=== PATIENT | male | born 1995 | race African-American/Black ===

== ENCOUNTER 2024-03-07 02:33 | Emergency (ER) | payer SELFPAY ==
[2024-03-07 02:43] VITALS: BP 144/95
--- NOTE | 2024-03-07 03:58 | ED.GENMED ---
Addendum entered and electronically signed by Kaylee Solis MD 03/13/24 01:49:
LATE ENTRY 6..24 149AM DIAGNOSIS : L FOOT PAIN
Original Note:
History of Present Illness
<RENATO Garcia - Last Filed: 03/07/24 05:16>
General
Chief Complaint: Musculo-Skeletal Complaint
Source: patient and spouse
Exam Limitations: none
Time Seen by Provider: 03/07/24 03:31
Travel History
Have you had any contact with someone who has COVID-19?: No
Do you have any symptoms of coronavirus? Fever > 100 degrees, chills, cough, shortness of breath, sore throat, loss of taste or smell, muscle aches, or headache?: No
History of Present Illness
History of Present Illness:
28 year old male with no significant past medical hx who presents with sudden onset of worsening L foot pain that began Saturday. Pain came on while pt was lying down. Pain is located to the bottom of the L heel, lateral foot, towards the pinky
toe. Currently pain is 10/10 and feels like a sharp stabbing pain and radiates up the lateral lower leg up to the knee. He has numbness to his L toes. Initially he was able to bear weight on it. He took Aspirin 81 mg 1 tab initially with no relief
of pain. He took Tylenol just prior to arrival. Denies trauma, injury, previous surgeries to the foot. 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 Denies symptoms to the R foot. Denies chest pain, SOB, fevers/chills, numbness/tingling to
other extremities, calf pain.
Review of Systems
<RENATO Garcia - Last Filed: 03/07/24 05:16>
Review of Systems
Allergies reviewed?: Yes
All Other Systems: ROS reviewed and negative except as documented in HPI and ROS
Constitutional: Reports no symptoms
EENT: Reports no symptoms
Respiratory: Reports no symptoms
Cardiac: Reports no symptoms
ABD/GI: Reports no symptoms
: Reports no symptoms
Musculoskeletal: Reports other (pain to L foot)
Skin: Reports no symptoms
Neurological: Reports numbness (to toes of L foot)
Endocrine: Reports no symptoms
Hematologic/Lymphatic: Reports no symptoms
Psychiatric: Reports no symptoms
Phy Exam
<RENATO Garcia - Last Filed: 03/07/24 05:16>
General Physical Exam
General Presentation: well appearing and no apparent distress
General age: appears stated age
General Skin: warm and dry
General Habitus: normal
General Mental: alert
General Hydration: appears well hydrated
Cardiovascular Exam
Cardiovascular Exam: regular rate/rhythm, no edema, no gallop, no murmur and normal peripheral pulses
Pulmonary Exam
Pulmonary Exam: lungs clear, no respiratory distress, no rales, no crackles, no rhonchi, no wheezing and no cough
Neurological Exam
Neurological Exam: alert and oriented x3
Musculoskeletal Exam
Musculoskeletal Exam: other (tenderness to palpation of L heel, lateral L foot, L pinky toe. Motor and sensation intact. DP pulses present. No swelling, erythema. No deformities. )
Skin Exam
Skin Exam: normal color and warm/dry
Psychiatric Exam
Psychiatric Exam: normal mood/affect
Course
<RENATO Garcia - Last Filed: 03/07/24 05:16>
Orders/Labs/Results
Orders:
Orders
03/07/24 04:11
CR Foot - Left Min 3 Views Urgent
Comment:
Reason For Exam: foot pain
03/07/24 04:52
Ibuprofen [Motrin] 600 mg PO NOW STA
Vital Signs
Initial and Last Documented VS:
Initial Vital Signs
Temp Pulse Resp BP Pulse Ox
98.3 F 78 20 144/95 97
03/07/24 02:43 03/07/24 02:43 03/07/24 02:43 03/07/24 02:43 03/07/24 02:43
Last Documented Vital Signs
Temp Pulse Resp BP Pulse Ox
98.3 F 78 20 144/95 97
03/07/24 02:43 03/07/24 02:43 03/07/24 02:43 03/07/24 02:43 03/07/24 02:43
<Kaylee Solis MD - Last Filed: 03/07/24 05:15>
Orders/Labs/Results
Orders:
Orders
03/07/24 04:11
CR Foot - Left Min 3 Views Urgent
Comment:
Reason For Exam: foot pain
03/07/24 04:52
Ibuprofen [Motrin] 600 mg PO NOW STA
Vital Signs
Initial and Last Documented VS:
Initial Vital Signs
Temp Pulse Resp BP Pulse Ox
98.3 F 78 20 144/95 97
03/07/24 02:43 03/07/24 02:43 03/07/24 02:43 03/07/24 02:43 03/07/24 02:43
Last Documented Vital Signs
Temp Pulse Resp BP Pulse Ox
98.3 F 78 20 144/95 97
03/07/24 02:43 03/07/24 02:43 03/07/24 02:43 03/07/24 02:43 03/07/24 02:43
<RENATO Garcia - Last Filed: 03/07/24 05:16>
MDM/Problems Addressed
Differential Diagnosis Includes:
peroneal tendonitis, plantar fasciitis, fracture, ligament tear
<RENATO Garcia - Last Filed: 03/07/24 05:16>
*Critical Care Note
Total Time (30-74mins, 75-104mins- exclusive of procedures): Not Applicable
ED Attending Note
<RENATO Garcia - Last Filed: 03/07/24 05:16>
-
Portions of this chart may have been created with voice recognition software.� Occasional wrong word or��sound alike� substitutions may have occurred due to the inherent limitations of voice recognition software.
<Kaylee Solis MD - Last Filed: 03/07/24 05:15>
ED Attending Note
Patient seen and examined by attending physician: Yes
I performed the substantive portion of visit, reviewed & personally made and approve the management plan that is documented in note by myself or SEBASTIÁN.: Yes
ED Attending Note:
28-year-old male with complaints of pain of the left lateral aspect of the heel radiating to the lateral aspect of the foot distally to the level of the pinky toe. This started late Saturday evening and continues, especially worse with standing or
walking. He denies associated trauma, drainage, redness, warmth, fever, chills, joint pain. He says the area feels a little bit painful in the distal posterior leg area but this is minor compared to the actual foot. Patient is on his feet for
many hours a day 6 days a week. On exam, no swelling redness or warmth noted. No lesions or rash, drainage fluctuance or crepitus of the foot ankle or calf area. Achilles intact without tenderness to palpation. No calf tenderness or swelling.
2+ DP PT pulses. Sensation intact to light touch. Full range of motion of entire lower extremity without difficulty. He notes discomfort at the lateral aspect of the left heel, left fifth metatarsal and left pinky toe with palpation. Clinically
I highly doubt septic arthritis, gout, vascular event. May be consistent with plantar fasciitis or overuse. X-ray not consistent with fracture. Patient aware x-ray may not fully rule out stress fracture. Recommendation is walking boot,
nonsteroidals, Ortho follow-up. present and in agreement with plan as well.
Discharge Plan
Departure
Date of Disposition: 03/07/24
Time of Disposition: 05:13
Patient with high blood pressure during this ER visit?: Yes
Condition: Good
Instructions: Foot Sprain ED, BLOOD PRESSURE
Prescriptions:
No Action
No Current Medications
0
Referrals:
Edison Wharton MD [Active] - As needed
Activity Restrictions/Additional Instructions:
IF YOU DEVELOP INCREASING/NEW/PERSISTENT PAIN, REDNESS, WARMTH, SWELLING, FEVER, DRAINAGE, OR OTHER WORRISOME SIGNS, GO TO THE ER IMMEDIATELY!
Interventions
Interventions:
*Risk Screen - Suicide Last Done: 03/07/24 02:43
*General Assessment Last Done: 03/07/24 02:43
*Neglect/Abuse Screening Last Done: 03/07/24 02:43
ED- Fall Risk Assessment Last Done: 03/07/24 02:43
*ED COVID-19 Vaccine History Last Done: 03/07/24 02:43
ED-Musculoskeletal Assessment Last Done: 03/07/24 03:28
Discharge Date and Time
Print Language: KYRGYZ
[2024-03-07] MEDS: MOTRIN 600 MG PO (05:05)
== END 2024-03-07 05:40 | disposition home or self-care (01) ==
LOC: EMR 02:33
PROVIDERS: EMERGENCY PHYSICIAN Emergency Medicine
DX: S93.602A Unspecified sprain of left foot, initial encounter (principal); X58.XXXA Exposure to other specified factors, initial encounter; R03.0 Elevated blood-pressure reading, without diagnosis of hypertension
CPT/HCPCS: 99283; 73630

== ENCOUNTER 2024-03-11 01:23 | Inpatient (IN) | payer OTHER, SELFPAY ==
[2024-03-10 23:38] VITALS: BP 163/103
[2024-03-10 23:57] LABS: Glucose - Point of Care 102 mg/dl (70-99)
[2024-03-11] VITALS (65 sets, daily range): BP systolic 114–165; BP diastolic 69–103; BMI 35.5; BMI 35.1
[2024-03-11 00:03] LABS: Hematocrit 44.6 % (39.0-52.0); Hemoglobin 15.1 g/dL (13.0-18.0); Mean Corp Hgb Conc. 33.9 g/dL (33.0-37.0); Mean Corpuscular Volume 85.6 fL (80.0-94.0); Mean Platelet Volume 9.7 fL (7.4-10.4); Platelet Count 356 10^3/uL (130-400); Red Blood Cell Count 5.21 10^6/uL (4.70-6.10); Red Cell Dist. Width 13.3 % (11.5-14.5); White Blood Cell Count 13.5 10^3/uL (4.8-10.8)
[2024-03-11 00:13] LABS: INR 1.03; PT 13.3 Sec (11.4-14.6)
[2024-03-11] MEDS: TNKASE 5 MG IV (00:23)
[2024-03-11 00:24] LABS: ALT (SGPT) 59 U/L (0-50); AST (SGOT) 47 U/L (17-59); Albumin 5.1 g/dl (3.5-5.0); Alkaline Phosphatase 74 U/L (38-126); Blood Urea Nitrogen 13 mg/dl (9-20); Calcium 10.5 mg/dl (8.4-10.2); Carbon Dioxide 25 mmol/L (22-30); Chloride 105 mmol/L (98-107); Estimated Creatinine Clearance > 125 ml/min; Glucose 103 mg/dl (70-99); Potassium 4.3 mmol/L (3.5-5.1); Sodium 140 mmol/L (135-145); Total Bilirubin 0.6 mg/dl (0.2-1.3); Total Protein 8.1 g/dl (6.3-8.2); eGFR > 60.00
[2024-03-11 00:27] LABS: Alcohol None Detected
--- NOTE | 2024-03-11 00:28 | EDRN ---
Patient currently back in CT. Per the verbal orders of Dr. Zavala patient was to go directly back to CT after giving the TNK.
[2024-03-11 00:36] LABS: Troponin I < 0.012 ng/ml
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
--- NOTE | 2024-03-11 01:04 | EDRN ---
Patient being transferred to the ICU.
[2024-03-11] MEDS: TYLENOL 650 MG PO (02:34)
[2024-03-11] MEDS: NSS 1000 IV (02:35)
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
[2024-03-11 03:13] LABS: Urine Albumin Negative (Neg - Trace); Urine Bilirubin Negative (Negative); Urine Character Clear (Clear); Urine Color Yellow; Urine Glucose Negative (Negative); Urine Ketone Negative (Negative); Urine Leukocyte Negative (Negative); Urine Nitrite Negative (Negative); Urine Occult Blood Negative (Negative); Urine Specific Gravity 1.015 (<1.030); Urine Urobilinogen Negative (Neg - 1+)
--- NOTE | 2024-03-11 03:34 | PTCARENOTE ---
Received patient AAOx4, following commands, complaining of headache in left christianity. Patient reports 'it's not painful, just pressure'. PRN tylenol given. Drowsy, PERRLA 3, moves all extremities. Handoff NIH 3 due to left arm drift and bilateral
lower extremity drift. NIH 2 hours post TNK 0. Limited movement in left leg due to pain from plantar fasciitis. Normal sinus/sinus jasen, 58-70s. SCDs on, BP 130s-140s/80s-90s. Temp 100 orally. Palpable radial and pedal pulses bilaterally. 96% on
room air, lung sounds clear. Last BM yesterday, 03/10/24. Bathroom to void, yellow urine. UA/drug abuse screen sent. Skin intact, some scabs on legs. Right antecubital #18 WNL, patent. NSS running at 80 mls/hr per order. Family at bedside, updated.
Neuro checks ongoing, call duval within reach.
[2024-03-11 03:52] LABS: Amphetamines Negative (Negative); Barbiturates Negative (Negative); Benzodiazepines Negative (Negative); Buprenorphine Negative (Negative); Cocaine Negative (Negative); Marijuana Negative (Negative); Methadone Negative (Negative); Methamphetamines Negative (Negative); Opiates Negative (Negative); Phencyclidine Negative (Negative); Tricyclic Antidepressants Negative (Negative)
[2024-03-11 05:03] LABS: Hematocrit 41.1 % (39.0-52.0); Hemoglobin 13.9 g/dL (13.0-18.0); Mean Corp Hgb Conc. 33.8 g/dL (33.0-37.0); Mean Corpuscular Hgb 29.1 pg (27.0-31.0); Mean Platelet Volume 9.8 fL (7.4-10.4); Platelet Count 322 10^3/uL (130-400); Red Blood Cell Count 4.78 10^6/uL (4.70-6.10); Red Cell Dist. Width 13.2 % (11.5-14.5); White Blood Cell Count 9.9 10^3/uL (4.8-10.8)
[2024-03-11 05:14] LABS: INR 1.06; PT 13.6 Sec (11.4-14.6)
[2024-03-11 05:15] LABS: APTT 34.8 Sec (23.4-35.0)
[2024-03-11 05:25] LABS: ALT (SGPT) 51 U/L (0-50); AST (SGOT) 38 U/L (17-59); Albumin 4.3 g/dl (3.5-5.0); Alkaline Phosphatase 75 U/L (38-126); Blood Urea Nitrogen 11 mg/dl (9-20); Calcium 9.6 mg/dl (8.4-10.2); Carbon Dioxide 21 mmol/L (22-30); Chloride 107 mmol/L (98-107); Estimated Creatinine Clearance > 125 ml/min; Glucose 106 mg/dl (70-99); HDL Cholesterol 46 mg/dl; LDL Cholesterol, Calculated 145 mg/dl; Magnesium 1.8 mg/dl (1.6-2.3); Phosphorus 4.9 mg/dl (2.5-4.5); Potassium 4.1 mmol/L (3.5-5.1); Sodium 139 mmol/L (135-145); Total Bilirubin 0.5 mg/dl (0.2-1.3); Total Cholesterol 213 mg/dl (50-199); Total Protein 6.8 g/dl (6.3-8.2); Triglyceride 114 mg/dl (10-149); Very Low Density Lipoprotein 22 mg/dl (0-30); eGFR > 60.00
[2024-03-11 05:33] LABS: Troponin I < 0.012 ng/ml
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
--- NOTE | 2024-03-11 08:46 | PTCARENOTE ---
Dr Handley in to evaluate pt and speak w/ pt's present in room. New orders received. Per Dr Handley, pt can have MRI as early as 1600 today. MRI dept notified.
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
[2024-03-11] MEDS: COMPAZINE 5 MG PO (09:05)
[2024-03-11] MEDS: MAXALT MLT (ORALLY DISINTEGRATING) 10 MG PO ×2 (09:05→10:56)
[2024-03-11 09:09] LABS: Glycohemoglobin (HgbA1c) 6.3 % (4.0-5.6)
--- NOTE | 2024-03-11 10:00 | PTOTSP ---
Speech Language Pathology
Pt seen for speech/language evaluations. Initially, no dysarthria noted with adequate diadochokinetic (DDK) rates. By end of evaluation, pt with some dysarthria. However, suspect this was more fatigue and decreased movement of mouth than a true
dysarthria. Language evaluated via the Quick Aphasia Batter (QAB), form 1. Pt scored WNL on overall score as well as on all subtests.
Pt also seen for clinical bedside swallow evaluation. P.O. trials of puree, regular solids, and thin liquids provided. Adequate mastication, bolus formation, and A-P transit noted with no oral residue. No overt signs of aspiration. He stated
that applesauce felt like it went 'down slower' but did not stick in throat.
Recommend:
(1) Regular solids/thin liquids
(2) General aspiration precautions
(3) Meds as tolerated
(4) SUGAR HOUSE SUPERVISOR to continue to follow to ensure diet tolerance, assess for dysarthria, and complete therapeutic reassessment of cognitive abilities
--- NOTE | 2024-03-11 12:00 | PTCARENOTE ---
Pt continues to rest quietly in bed. Reports 'maybe a little' improvement in Lt sided facial numbness/pressure at latter-day' since previously administered Maxalt- rates discomfort 11/16. Otherwise neuro unchanged. Pt refused to get OOB to sit in chair
'I'm too tired'. Safe environment maintained. Call mukund w/in pt reach.
--- NOTE | 2024-03-11 14:41 | W.PN.HOSP.TC ---
Today's Communication/Plan
-
pt/ot/st
diet
MRI this afternoon
ECHO
Statin
antiplatelet regimen once cleared by neuro
Assessment / Plan
Assessment / Plan
Physical Exam
General: Other (28y M in no acute distress.)
HEENT: Moist mucous membranes and PERRLA
Respiratory: Clear; No Wheezes, Rales or Rhonchi
Cardiac: S1/S2 and Regular Rhythm; No Murmur
GI: Soft, Non Tender, Non Distended and Normal Bowel Sounds
Musculoskeletal: No Clubbing, No Cyanosis and No Edema
Neuro: AO x 3 and Other (Decreased sensation in the L hand, L foot and L face. Motor exam limited by apparent decreased effort - no focal or symmetric deficits.)
Psych: No Anxious or Depressed
A/P: Patient is a 28y M with PMH significant for vascular reconstruction of the LUE who presents to ED complainnig of L sided numbness that started this evening.
Left Sided Numbness / Headache
- Admit for further evaluation / treatment.
- ? CVA / TIA versus complex migraine versus other.
- CT / CTA unremarkable.
- Received TNKase in the ED - continue protocol.
- MRI at appx 4 pm
- OK for diet; Chol Lowering diet
- Neuro / Bee Farmer evaluations.
- Check Echo
- LDL 145 - start statin
- hgba1c - 6.3
- Note family history of undefined hypercoagulable state.
- Follow for changes in exam.
- PT / OT evaluations.
- Educated on diet and exercise
DVT Prophylaxis: SCDs
Code Status: Full
Anticipated Discharge: 24 - 48 hours
Subjective/Interval History
-
Date of Service: March 11, 2024
Improvement in left-sided weakness, still complains of numbness in the left face
Objective Data
-
Labs:
Laboratory Results
03/11/24
04:43
WBC 9.9
Hgb 13.9
Hct 41.1
Plt Count 322
PT 13.6
INR 1.06
APTT 34.8
Sodium 139
Potassium 4.1
Chloride 107
Carbon Dioxide 21 L
BUN 11
Creatinine 0.8
Glucose 106 H
Calcium 9.6
Total Bilirubin 0.5
AST 38
ALT 51 H
Alkaline Phosphatase 75
Vital Signs:
Vital Signs
Temp Pulse Resp BP Pulse Ox
98.2 F 78 19 124/80 96
03/11/24 11:08 03/11/24 14:15 03/11/24 14:15 03/11/24 14:00 03/11/24 14:15
I&O
03/10/24 03/11/24 03/12/24
06:59 06:59 06:59
Intake Total 400 / 480 560 / 560
Output Total 500 / 500
Balance 400 / 480 60 / 60
Review of Systems
-
History Source: Patient
All other systems: Not reviewed unless documented
Data Reviewed
-
Diagnostic Radiology: Image personally visualized and interpreted and Report Reviewed by me
CT Scan: Image personally visualized and interpreted and Report Reviewed by me
Labs: Labs Reviewed by me
--- NOTE | 2024-03-11 16:09 | CM ---
CM met with pt and mother/Tracey bedside
Pt slept through assessment
Pt resides with his spouse in a 2SH with 2 CHRISTOPHER, full flight to B/B
Pt is independent and no DMEs
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
Call with spouse to introduce self
Pt does not have a PCP
He recently lost his Medicaid insurance- unknown to spouse reason why
[facility]
Will continue to follow for dc planning
PT/OT pending
Discharge Disposition- home, likely no needs
--- NOTE | 2024-03-11 16:50 | PTCARENOTE ---
Pt to MRI at 1600 via WC. No changes noted. No new complaints. Returned to room and requested to return to bed 'I just feel wiped out and don't really want to sit up' Family in room visiting
[2024-03-11] MEDS: LIPITOR 40 MG PO (18:20)
--- NOTE | 2024-03-11 19:58 | PTCARENOTE ---
Received patient AAOx4, following commands, reporting acceptable level of 'pressure' from headache of 2. at bedside. NIH 0. Normal sinus 80s, BP stable 120s/70s. Palpable radial and pedal pulses bilaterally. SCDs on. 96% on room air. Lung
sounds diminished at the bases. Bathroom to void. Skin intact. Right antecubital #18 IV WNL, patent. Call duval within reach.
[2024-03-12] VITALS (10 sets, daily range): BP systolic 111–138; BP diastolic 56–85; PULSE 67; BMI 35.1
--- NOTE | 2024-03-12 | PTCARENOTE ---
Patient assessment unchanged from previous, call duval within reach.
[2024-03-12] MEDS: MAALOX 30 ML PO (01:41)
[2024-03-12] MEDS: TUMS EX (EXTRA STRENGTH) CHEWABLE 2 TABLET PO (01:41)
--- NOTE | 2024-03-12 04:00 | PTCARENOTE ---
Patient assessment unchanged from previous, received tums for heart burn. at bedside, patient sleeping comfortably.
[2024-03-12 05:04] LABS: Hemoglobin 14.2 g/dL (13.0-18.0); Mean Corpuscular Hgb 28.9 pg (27.0-31.0); Mean Corpuscular Volume 87.4 fL (80.0-94.0); Mean Platelet Volume 9.8 fL (7.4-10.4); Platelet Count 299 10^3/uL (130-400); Red Blood Cell Count 4.92 10^6/uL (4.70-6.10); Red Cell Dist. Width 13.2 % (11.5-14.5); White Blood Cell Count 9.9 10^3/uL (4.8-10.8)
[2024-03-12 05:35] LABS: ALT (SGPT) 48 U/L (0-50); AST (SGOT) 33 U/L (17-59); Albumin 4.1 g/dl (3.5-5.0); Alkaline Phosphatase 65 U/L (38-126); Blood Urea Nitrogen 14 mg/dl (9-20); Calcium 9.9 mg/dl (8.4-10.2); Carbon Dioxide 21 mmol/L (22-30); Chloride 108 mmol/L (98-107); Estimated Creatinine Clearance > 125 ml/min; Glucose 109 mg/dl (70-99); Phosphorus 5.4 mg/dl (2.5-4.5); Potassium 4.5 mmol/L (3.5-5.1); Sodium 139 mmol/L (135-145); Total Bilirubin 0.6 mg/dl (0.2-1.3); Total Protein 6.5 g/dl (6.3-8.2); eGFR > 60.00
[2024-03-12 06:04] LABS: TSH Reflex To Free T4 0.44 uIU/ml (0.47-4.68)
[2024-03-12 06:33] LABS: Free T4 0.84 ng/dl (0.78-2.19)
--- NOTE | 2024-03-12 07:52 | W.PN.NEURO.1 ---
Today's Communication / Plan
-
-No indication for antiplatelet
-Statin versus diet/exercise and cutting down alcohol and cigarettes both reasonable options
-No longer needs ICU
-No barriers to discharge from my POV, no further neurologic workup or monitoring needed
Will sign off call with questions and concerns
Neuro Assessment/Plan
Assessment
28 year old man with no PMH presenting with head pressure/discomfort on left adventism, mild photophobia, left facial numbness and left arm and leg mild weakness, received TNK with no complications.
No history of migraines
Has had intermittent chest pains
MRI no acute or chronic stroke, no findings suggestive of MS. Cisterna magna is benign anatomic variant.
Suspect this was migraine or stress/functional neurologic disorder. Not concerned this was TIA or seizure.
Much improved compared to admission and day after admission.
Subjective/Objective
Subjective Data
Date of Service: March 12, 2024
No acute events, started to feel better about 9 PM yesterday, no head pressure or discomfort, eating okay, still with left foot pain
Objective Data
Vital Signs
Temp Pulse Resp BP Pulse Ox
98.1 F 55 15 111/58 96
03/12/24 07:45 03/12/24 06:30 03/12/24 06:30 03/12/24 06:00 03/11/24 19:56
Lab Results
03/12/24 04:49
03/12/24 04:49
PT 13.6 Sec (11.4-14.6) 03/11/24 04:43
INR 1.06 03/11/24 04:43
APTT 34.8 Sec (23.4-35.0) 03/11/24 04:43
Sodium 139 mmol/L (135-145) 03/12/24 04:49
Potassium 4.5 mmol/L (3.5-5.1) 06/06/24 04:49
BUN 14 mg/dl (9-20) 03/12/24 04:49
Glucose 109 mg/dl (70-99) H 03/12/24 04:49
Calcium 9.9 mg/dl (8.4-10.2) 03/12/24 04:49
Phosphorus 5.4 mg/dl (2.5-4.5) H 03/12/24 04:49
LDL Cholesterol, Calc 145 mg/dl 03/11/24 04:43
Ur Buprenorphine Negative (Negative) 03/11/24 03:01
Patient Allergies
No Known Allergies Allergy (Verified 03/07/24 02:43)
Review of Systems
-
History Source: Patient
All other systems: Reviewed and negative
Constitutional: No Symptoms
EENT: No Symptoms Reported
Respiratory: No Symptoms
Cardiac: No Symptoms
Abdomen/GI: No Symptoms
Genitourinary: No Symptoms
Musculoskeletal: No Symptoms
Skin: No Symptoms
Neuro: No Symptoms
Endocrine: No Symptoms
Hematologic / Lymphatic: No Symptoms
Allergy / Immunology: No Symptoms
Physical Exam
-
General: Well Developed and Well Nourished
Eyes: No Ptosis
HEENT: Normocephalic
Neck: No Bruits Bilaterally
Respiratory: Clear to Auscultation
Cardiac: Regular Rhythm
GI: Normal Bowel Sounds
Skin: Unremarkable
Extremities: No Clubbing
Psych: Unremarkable
Extended Neurological Exam
Mood & Affect: Mood Unremarkable and Affect Unremarkable
Attention Span & Concentration: Awake, Alert and Interactive
Tremor: Hand Tremor Absent
Speech: Quality Unremarkable and Quantity Unremarkable; Negative Expressive Aphasia, Receptive Aphasia or Dysarthric
Cranial Nerve II: Left Eye: Pupillary Reactivity Unremarkable and Pupillary Size Unremarkable
Cranial Nerve II: Right Eye: Pupillary Reactivity Unremarkable and Pupillary Size Unremarkable
Cranial Nerves III, IV, : Extraocular Movement: Extraocular Movement Full in all Directions
Muscle Strength, Overall: Full Throughout
Deep Tendon Reflexes: Trace Throughout
Gait & Station: Unremarkable Arm Swing and Up from Seated Without Problem
Data Reviewed
-
CT-A: Report Reviewed and Image Reviewed
CT Head: Report Reviewed and Image Reviewed
MRI Head: Report Reviewed and Image Reviewed
--- NOTE | 2024-03-12 08:40 | W.PN.INTV ---
Today's Communication / Plan
Recommendations
Tobacco cessation strongly encouraged
Discussed nicotine replacement therapy with the patient in front of his today
Advised to establish care with a PCP and repeat thyroid function tests in 4-6 weeks, also monitor his lipid profile to trend his LDL as well as monitor his blood pressure
Up OOB
coding educator consulted
Patient is stable for downgrade out of ICU - patient is being prepared for discharge home. Opticianry Teacher/Pulmonary service will now sign off. Please reconsult if there are any additional questions/concerns, or if patient's respiratory status
deteriorates.
Assessment
-
Assessment: 28-year-old M with PMHx of tobacco use disorder who p/w sudden L-sided facial numbness, headache, trouble speaking, left shoulder pain and chest pain that began 1 hour prior to arrival. Initial vital signs showed BP 163/103, pulse rate
89, saturating 100% on room air and afebrile 98.9 �F. Initial labs showed mild leukocytosis to 13.5, glucose 103, ALT 59, troponin negative and negative sign 0.012, urinalysis negative for signs of UTI and urine drug screen negative. Alcohol level
negative. Initial CT head was negative for any acute intracranial abnormality, and head/neck CTA showed no acute stenosis, or dissection. Due to concern for acute ischemic CVA he was given TNK at 0023 on 03/11/2024. He was admitted to the ICU for
further care and critical care services consulted for additional management/recommendations.
Impression:
#Left-sided facial + hemithorax numbness with 'left sided temporal pressure' � likely due to complex migraine; no evidence of acute ischemic stroke given negative brain MRI; less likely somatoform disorder vs conversion
#Leukocytosis - now resolved
#Hyperphosphatemia
#Pre-diabetes (Hba1c: 6.3)
#Transaminitis - ALT 51 -now resolved
#Tobacco use disorder
Plan:
- Keep BP<180/105
- MRI performed yesterday showing no evidence for a focal area of acute/subacute infarction
- Neurology consulted - recs appreciated
- Neurochecks q4hr and NIHSS q shift or prn neuro changes
- We initially started a statin with goal LDL<70 for now while we rule out CVA -> given his brain MRI is negative, I will stop this and I encouraged lifestyle modifications with diet and exercise with lipid profile monitoring with his PCP
- Consult life skills educator given his a1c in pre-diabetic range (6.3)
- TTE with bubble study --> WNL
- PT/OT
- TSH low, could be attributed to acute stress --> he should repeat his TFTs in 4-6 weeks
- APPLICATION INTEGRATION SPECIALIST eval --> passed eval
- Maintain SpO2 >90-94%
- Maintain MAP>65
- Replete electrolytes with K>4, Mg>2
- Maintain euglycemia with goal BG 140-180
- prn nebulized bronchodilators
- Incentive spirometer encouraged
- Nicotine patch encouraged --> I discussed nicotine replacement therapy with him including starting 2 modalities, i.e., nicotine patch + gum or patch + chantix, etc. Also discussed hypnosis and acupuncture as other modalities.
- DVT ppx - SCDs/start LMWH tonight
Patient is stable for downgrade out of ICU. Neurology said the patient can actually be discharged home and hospitalist is going to be discharging the patient home. Opticianry Teacher/Pulmonary service will now sign off. Thank you for allowing us to be
involved in the care of this patient. Please reconsult if there are any additional questions/concerns, or if patient's respiratory status deteriorates.
Total time spent today was 40 minutes for this encounter. Time includes reviewing laboratory test/imaging results, reviewing pertinent medical records, obtaining and reviewing medical history, performing an appropriate exam, ordering medications,
tests and procedures. Time also includes documentation of this encounter, coordinating patient care and communicating with other healthcare professionals. Total time does not include separately billed tests performed on this date of service.
Data:
CXR 03-11-2024:
Extremely low lung volumes.
No suspected acute cardiopulmonary process.
CTA Head/Neck 03-11-2024:
Unremarkable CTA of Neck and Head.
Mildly dominant right vertebral artery.
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
megacisterna magna.
No evidence of acute intracranial abnormality, with no evidence for a focal area of acute to subacute infarction.
CT Head 03-10-2024: No acute intracranial abnormality.
Subjective Dataa
Subjective Data
Date of Service:
Date of Service: March 12, 2024
Chief Complaint: Opticianry Teacher Follow Up
Subjective:
Patient seen and evaluated this morning. MRI brain from yesterday negative for acute intracranial abnormality. NIHSS is 0 this AM. This AM he denies facial numbness, denies headache or head pressure. He is eager to go home. , Vanessa, at
bedside. I answered all of his and his 's questions to their satisfaction.
Review of Systems
General: Other (Negative unless mentioned above)
Objective Data
Data Reviewed
Vital Signs / I&O / Oxygen:
Vital Signs
Temp Pulse Resp BP Pulse Ox
98.1 F 74 14 115/72 99
03/12/24 07:45 03/12/24 08:45 03/12/24 08:30 03/12/24 08:24 03/12/24 08:00
Intake and Output
03/11/24 03/12/24 03/13/24
06:59 06:59 06:59
Intake Total 400 / 480 1040 / 1040 360 / 360
Output Total 500 / 500
Balance 400 / 480 540 / 540 360 / 360
SaO2 99
Physical Exam
General: Respiratory Distress (negative) and Comfortable
HEENT: Normocephalic and Anicteric
Cardiovascular: S1-S2 and Peripheral Edema (negative)
Respiratory: Wheeze (negative), Crackles (negative), Rhonchi (negative) and Non-Labored Respirations
GI: Soft, Non Distended and Non Tender
Neurology: AO x 3, No Motor Deficits, Tremors (negative) and Other (Pupils +3 mm bilaterally and brisk; cranial nerves II-XII are intact; normal sensation bilaterally and plastics scientist strength is 4/5 bilaterally, dorsi/plantarflexion is 4/5 bilaterally due
to generalized weakness)
Skin: Warm, Dry and Jaundice (negative)
Labs/Micro/Reports
Lab Data
03/12/24 04:49
03/12/24 04:49
--- NOTE | 2024-03-12 08:57 | PTCARENOTE ---
recd pt handoff at bedside with previous shift. NIHSS scored 0, no c/o at present, anxious for discharge. reviewed process, family remains bedside. placed on tele pack, gait observed steady.
--- NOTE | 2024-03-12 10:30 | PTOTSP ---
pt currently demonstrates ability to complete simple ADLs, functional transfers, ambulation with no assistance. no overt deficits noted regarding physical ability, cognition. no acute OT needs identified at this time, will sign off.
--- NOTE | 2024-03-12 10:43 | PTCARENOTE ---
seen by Alethea Mccoy, María, returns clerk. awaiting diabetic ed. anxious to go home, aware of the plan/process. ambulating in room without complaints, no deficit, no pain or pressure.
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
--- NOTE | 2024-03-12 11:46 | W.DS.TRANS ---
DC Summary - Executive Personal Assistant
-
Discharge Instructions:
Discharge Diagnosis/Procedures migraine or stress/functional neurologic
disorder
Diet Low Cholesterol,Low Fat,Other diet,Diabetic,
Carb Controlled
Additional Diets Mediterranean diet is ideal, or something
similar to this. Low-fat low-cholesterol. Cut
down alcohol, stopping cigarettes
Activity As tolerated
Blood Work Lipids, hgba1c outpatient with PCP
Instructions:
Stand-Alone Forms:
Changes to Home Medications: No
Discharge Medications:
DC Medications w/original date entered in [facility]
No Meds [No Current Medications] 03/07/24
Home Medication Changes
none
Pending Results: No
--- NOTE | 2024-03-12 12:00 | PTCARENOTE ---
Diabetes Education- Met with Connie and his . New diagnosis pre diabetes, A1C 6.3%. Encouraged to attend pre diabetes class, where he will be taught how to check his blood sugar, and received a meal plan specific to his height ,weight and
activity level. information provided. Discussed importance of watching CHO intake, reducing portion sizes and consuming protein with each meal and snack. States his job is physical, 'a lot of lifting', Connie is quiet and does not offer much
information. Encouraged to remain active, walk on breaks and days off. Education booklet with phone number provided.
--- NOTE | 2024-03-12 12:27 | PTCARENOTE ---
discharged via wc to waiting personal vehicle with . seen by lpn or medical assistant, diabetic, denied need for further PT.
--- NOTE | 2024-03-12 12:54 | CM ---
Met with patient and his at the bedside
Provided PCP resources: [facility]
will provide transport home
Plan: discharge to home today; no needs
== END 2024-03-12 12:20 | disposition home or self-care (01) | DRG 880 ==
LOC: ICU 01:23
PROVIDERS: Nurse Practitioner Family; ADMITTING PHYSICIAN Hospitalist; ATTENDING PHYSICIAN Internal Medicine; CONSULT PHYSICIAN Internal Medicine Critical Care Medicine; CONSULT PHYSICIAN Student in an Organized Health Care Education/Training Program; EMERGENCY PHYSICIAN Student in an Organized Health Care Education/Training Program
DX: F44.4 Conversion disorder with motor symptom or deficit (principal); F17.210 Nicotine dependence, cigarettes, uncomplicated; E78.5 Hyperlipidemia, unspecified; G43.909 Migraine, unspecified, not intractable, without status migrainosus
CPT/HCPCS: 70450; 70496; 70498; 70551; 71045; 80053; 80061; 80306; 81003; 82077; 82962; 83036; 83735; 84100; 84439; 84443; 84484; 85027; 85610; 85730; 92523; 92610; 93005; 93306; 96374; 97165; 99285; J3101; Q9967

== ENCOUNTER 2024-04-22 13:03 | Emergency (ER) | payer OTHER, SELFPAY ==
[2024-04-22 13:07] VITALS: BP 141/90
[2024-04-22 13:23] VITALS: BP 131/80
[2024-04-22 13:48] VITALS: BMI 34.4
[2024-04-22 14:04] LABS: % Basophils 0.3 % (0-2); % Eosinophils 0.6 % (0-6); % Immature Granulocytes 0.2 % (0-0.5); % Lymphocytes 26.8 % (20.5-51.1); % Monocytes 8.7 % (1.7-9.3); % Neutrophils 63.4 % (42.2-75.2); Absolute Eosinophils 0.1 10^3/uL (0-0.7); Absolute Lymphocytes 2.4 10^3/uL (1.2-3.4); Absolute Monocytes 0.8 10^3/uL (0.1-0.6); Absolute Neutrophils 5.7 10^3/uL (1.4-6.5); Hematocrit 42.1 % (39.0-52.0); Hemoglobin 14.3 g/dL (13.0-18.0); Mean Corpuscular Hgb 29.8 pg (27.0-31.0); Mean Corpuscular Volume 87.7 fL (80.0-94.0); Mean Platelet Volume 9.9 fL (7.4-10.4); Nucleated Red Blood Cells % 0 % (-); Platelet Count 306 10^3/uL (130-400); Red Cell Dist. Width 13.1 % (11.5-14.5)
[2024-04-22 14:11] LABS: ALT (SGPT) 43 U/L (0-50); AST (SGOT) 30 U/L (17-59); Albumin 4.7 g/dl (3.5-5.0); Alkaline Phosphatase 69 U/L (38-126); Blood Urea Nitrogen 10 mg/dl (9-20); Calcium 9.7 mg/dl (8.4-10.2); Carbon Dioxide 25 mmol/L (22-30); Chloride 106 mmol/L (98-107); Estimated Creatinine Clearance > 125 ml/min; Glucose 93 mg/dl (70-99); Sodium 140 mmol/L (135-145); Total Bilirubin 0.7 mg/dl (0.2-1.3); eGFR > 60.00
[2024-04-22 14:23] LABS: Troponin I < 0.012 ng/ml
[2024-04-22] MEDS: COMPAZINE 10 MG IV (14:27)
[2024-04-22] MEDS: TORADOL 15 MG IV (14:29)
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
[2024-04-22] MEDS: BENADRYL 25 MG IV (14:30)
[2024-04-22 14:56] LABS: Erythrocyte Sed Rate 9 mm/hour (0-20)
[2024-04-22 15:07] VITALS: BP 125/75
[2024-04-22] MEDS: IMITREX 100 MG PO (15:13)
[2024-04-22] MEDS: DECADRON 8 MG IV (15:14)
[2024-04-22 15:22] VITALS: BP 125/75
--- NOTE | 2024-04-22 15:40 | ED.GENMED ---
History of Present Illness
General
Chief Complaint: Headache
Source: patient and spouse
Exam Limitations: none
Time Seen by Provider: 04/22/24 13:28
History of Present Illness
History of Present Illness:
Patient started yesterday with left-sided headache some tingling in his left arm and a subjective swelling sensation in his left arm. This is been persistent since yesterday. Stated his last episode where he received TNKase started the same way.
However no speech issues at this time. Headache is mostly left-sided. Mild to moderate in nature. No visual issues no gait issues no other neurologic symptoms. Workup about a month ago including CTA of the head and neck and MRI were
unremarkable. [place] at that time to be a complex migraine.
Past History
Past History
ED Past Medical History: Other (Recent neurologic episode. Possible complex migraine)
ED Past Surgical History: Orthopedic (Left arm surgery)
Patient has exhibited threatening behavior?: No
Review of Systems
Review of Systems
All Other Systems: Not applicable
Respiratory: Reports no symptoms
Cardiac: Reports chest pain (Brief chest pain yesterday resolved)
Phy Exam
Physical Exam
Physical Exam:
GENERAL: Alert and oriented in no apparent distress
EYE: Orbits normal.
NECK: Supple
CARDIAC: Regular rate and rhythm without any obvious murmurs.
LUNGS: Clear breath sounds,normal
ABDOMEN: Soft, without focal tenderness or distention
NEUROLOGICAL: Alert and oriented , speech normal. Cranial nerves II through XII intact. Iurpoj-ia-hbjv normal. Lower extremity strength normal. Some questionable slight drift of the left arm. And some subjective decrease sensation to pinprick
and light touch to the left arm
SKIN: Warm and dry, no rash or lesion, no discoloration, skin intact.
MUSCULOSKELETAL: No edema,no deformity.Good color
PSYCH: Normal and appropriate interaction.
Course
Orders/Labs/Results
Orders:
Orders
04/22/24 13:40
Add On- LAB Urgent
Tests Added?: esr
Electrocardiogram (*1) Stat
Reason for Study: Other
Other Reason for Exam: Headache
CT Head W/o Iv Contrast Urgent
Comment:
Reason For Exam: Left-sided headache/left arm tingling and weakness
EKG- Treatment ONCE
IV Insert/Care/Rem.- Treatment PRN
04/22/24 13:51
CMP [Comprehensive Metabolic Panel] Urgent
Complete Blood Count/With Diff Urgent
Erythrocyte Sed Rate Urgent
Comment: ESR ADDED ON BY FLOOR 1:40PM 04-22-24
Troponin I Urgent
04/22/24 14:11
Diphenhydramine [Benadryl] 25 mg IV NOW STA
Ketorolac [Toradol] 15 mg IV NOW STA
Prochlorperazine [Compazine] 10 mg IV NOW STA
Sumatriptan Succinate [Imitrex] 100 mg PO NOW STA
04/22/24 14:16
CXR2 [CR Chest - 2 Views ] Urgent
Comment:
Reason For Exam: Left arm swelling
US Periph Venous UPPER Ext LT Urgent
Comment:
Reason For Exam: Swelling/tingling
04/22/24 14:23
MethylPREDNISolone PF [Solu-Medrol Pf] 125 mg IV NOW STA
04/22/24 14:25
Dexamethasone Sod Phosphate [Decadron] 8 mg IV NOW STA
04/22/24 14:35
Sumatriptan Succinate [Imitrex] 100 mg PO NOW STA
Abnormal Lab Results
04/22/24
13:51
Absolute Monos (auto) 0.8 H 10^3/uL
(0.1-0.6)
04/22/24 13:51
04/22/24 13:51
Vital Signs
Initial and Last Documented VS:
Initial Vital Signs
Temp Pulse Resp BP Pulse Ox
98.9 F 67 20 141/90 98
04/22/24 13:07 04/22/24 13:07 04/22/24 13:07 04/22/24 13:07 04/22/24 13:07
Last Documented Vital Signs
Temp Pulse Resp BP Pulse Ox
98.9 F 48 14 130/78 97
04/22/24 13:07 04/22/24 17:00 04/22/24 17:00 04/22/24 18:37 04/22/24 18:37
MDM/Problems Addressed
Differential Diagnosis Includes:
Patient with some subjective left-sided paresthesias and possible mild left-sided upper extremity neurologic symptoms although very nontoxic and in no distress. Weak recent similar but more progressive symptoms showed no sign of a stroke. I did
ask for neurology opinion. They felt this was likely a complex migraine
*Radiology
Radiology exam reviewed: radiology read reviewed (Negative chest x-ray negative ultrasound negative CT head)
*Pulse Oximetry
Patient hypoxic: no
*EKG
Interpreted by ED Provider?: Yes
Interpretation: abnormal
Comparison EKG: changes noted
Heart Rate: 57
Rate: bradycardiac
Rhythm: sinus
[place]: normal axis
Interval: normal interval
QRS Pattern: normal QRS
Ischemia: non-specific ST changes
*Tattoo Technician Interpretation
Rate: normal
Interpretation: normal
Heart Rate: 68
Rhythm: sinus
*Critical Care Note
Total Time (30-74mins, 75-104mins- exclusive of procedures): Not Applicable
Data Reviewed
Review of Other/Old Records Reveals: Labs, Records, Testing and Discharge Summary
Update Note
Update Note:
Patient medically stable and asymptomatic. Cleared by neurology for discharge. Plan 50 mg for 7 days. Propranolol 20 twice daily. Neurology follow-up
ED Attending Note
-
Portions of this chart may have been created with voice recognition software.� Occasional wrong word or��sound alike� substitutions may have occurred due to the inherent limitations of voice recognition software.
Discharge Plan
Departure
Patient Disposition: Home (Routine Discharge)
Date of Disposition: 04/22/24
Time of Disposition: 18:22
Patient with high blood pressure during this ER visit?: Yes
Discharge Problem:
Acute headache, Left arm paresthesias, Possible migraine
Instructions: Migraines (DC), Headache, Adult (DC), BLOOD PRESSURE
Prescriptions:
New
prednisone 50 mg tablet
50 mg PO DAILY Qty: 7 0RF
propranolol 20 mg tablet
20 mg PO BID Qty: 60 0RF
Referrals:
Nathan Claire MD [Active] - Next open appointment
NONE,* [Family Provider] -
Stand Alone Forms: Return to Work
Activity Restrictions/Additional Instructions:
Your prescriptions were sent to your pharmacy
Call the neurology office for close follow-up. If this neurologist is not available you could see anyone in the group
Also follow-up with your primary physician
Return sooner with worsening headache or other new neurologic symptoms
Interventions
Interventions:
*Risk Screen - Suicide Last Done: 04/22/24 16:00
*General Assessment Last Done: 04/22/24 16:00
*Neglect/Abuse Screening Last Done: 04/22/24 16:00
*ED COVID-19 Vaccine History Last Done: 04/22/24 15:23
*Nursing Disposition Last Done: 04/22/24 18:37
ED- Neurological Assessment Last Done: 04/22/24 15:23
Discharge Date and Time
Discharge Date/Time: 04/22/24 18:40
Print Language: ITALIAN
[2024-04-22 18:37] VITALS: BP 130/78
== END 2024-04-22 18:40 | disposition home or self-care (01) ==
LOC: EMR 13:03
PROVIDERS: EMERGENCY PHYSICIAN Emergency Medicine; OTHER PHYSICIAN Student in an Organized Health Care Education/Training Program
DX: R51.9 Headache, unspecified (principal); R07.89 Other chest pain; R20.2 Paresthesia of skin; M79.602 Pain in left arm; R20.0 Anesthesia of skin; R22.32 Localized swelling, mass and lump, left upper limb; R03.0 Elevated blood-pressure reading, without diagnosis of hypertension
CPT/HCPCS: 99285; 96374; 96375 ×3; 70450; 71046; 80053; 84484; 85025; 85652; 93005; 93971

== ENCOUNTER 2024-09-14 13:49 | Emergency (ER) | payer SELFPAY ==
[2024-09-14 13:55] VITALS: BP 136/84; BMI 35.9
--- NOTE | 2024-09-14 14:07 | ED.GENMED ---
History of Present Illness
<Stefany Wynn PA-C - Last Filed: 09/14/24 18:49>
General
Chief Complaint: Chest Pain
Source: patient
Time Seen by Provider: 09/14/24 13:56
History of Present Illness
History of Present Illness:
28yoM with a history of hypertension and obesity presenting via EMS for evaluation of chest pain. 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 He reports tightness in the left
side of his chest. He also is having paresthesias of his left arm and left face. The pain has improved from its maximal intensity and he currently rates his pain as a 9/10 in severity. He also reports shortness of breath and feeling generally
weak. He tested positive for COVID 1 week ago and today was his first day back at work. Prehospital EKG was reportedly normal. Patient was admitted in March 2024 for left-sided numbness. He received TNK although stroke workup including MRI was
negative. Neurology thought his symptoms were secondary to a complex migraine.
Past History
<Stefany Wynn PA-C - Last Filed: 09/14/24 18:49>
Past History
ED Past Medical History: Other (Recent neurologic episode. Possible complex migraine)
ED Past Surgical History: Orthopedic (Left arm surgery)
Patient has exhibited threatening behavior?: No
Phy Exam
<Stefany Wynn PA-C - Last Filed: 09/14/24 18:49>
General Physical Exam
General Presentation: no apparent distress
General age: appears stated age
General Skin: warm and dry
General Habitus: normal
General Mental: alert and anxious
ENT Exam
ENT Exam: normocephalic
Cardiovascular Exam
Cardiovascular Exam: regular rate/rhythm, no murmur and normal peripheral pulses (2+ DP pulses bilaterally)
Pulmonary Exam
Pulmonary Exam: lungs clear, no respiratory distress, no rales, no crackles and no rhonchi
Neurological Exam
Neurological Exam: alert
Inez Coma Scale
Eye Opening: Spontaneous
Verbal Response: Oriented
Motor Response: Obeys Commands
GCS Total Score: 15
Skin Exam
Skin Exam: normal color and warm/dry
Psychiatric Exam
Psychiatric Exam: anxious
<Topher Dillard MD - Last Filed: 09/14/24 18:00>
Anup Coma Scale
GCS Total Score: 15
Scores
<Stefany Wynn PA-C - Last Filed: 09/14/24 18:49>
Heart Score for Chest Pain Patients
STEMI patient?: No
History: Slightly or Non-Suspicious
ECG: Nonspecific Repolarization
Age: </= 45 years
Risk Factors: 1 or 2 Risk Factors
Troponin: </= Normal Limit
Heart Score for Chest Pain Patients: 2
Heart Score Risk: 2.5% MACE over next 6 weeks
Course
<Stefany Wynn PA-C - Last Filed: 09/14/24 18:49>
Orders/Labs/Results
Orders:
Orders
09/14/24 14:03
Cardiac Monitoring- Treatment ONCE
09/14/24 14:04
Electrocardiogram (*1) Urgent
Reason for Study: Chest Pain
EKG- Treatment ONCE
09/14/24 14:05
CT Chest/abd/pelvis Angio W/wo Urgent
Comment:
Reason For Exam: L sided chest pain, L arm paresthesias
09/14/24 14:17
Complete Blood Count/With Diff Urgent
Comprehensive Metabolic Panel Urgent
Erythrocyte Sed Rate Urgent
Comment: ADD ON
Troponin I Urgent
09/14/24 14:39
Add On- LAB Urgent
Tests Added?: ESR
09/14/24 15:01
EKG- Treatment ONCE
09/14/24 17:12
Troponin I Urgent
09/14/24 17:15
Electrocardiogram (*1) Urgent
Reason for Study: Chest Pain
Abnormal Lab Results
09/14/24
14:17
Absolute Monos (auto) 0.8 H 10^3/uL
(0.1-0.6)
Carbon Dioxide 21 L mmol/L
(22-30)
ALT 54 H U/L
(0-50)
09/14/24 14:17
09/14/24 14:17
Vital Signs
Initial and Last Documented VS:
Initial Vital Signs
Temp Pulse Resp BP Pulse Ox
97.9 F 70 16 136/84 99
09/14/24 13:55 09/14/24 13:55 09/14/24 13:55 09/14/24 13:55 09/14/24 13:55
Last Documented Vital Signs
Temp Pulse Resp BP Pulse Ox
97.9 F 66 24 113/68 97
09/14/24 13:55 09/14/24 17:00 09/14/24 17:00 09/14/24 17:00 09/14/24 17:00
<Topher Dillard MD - Last Filed: 09/14/24 18:00>
Orders/Labs/Results
Orders:
Orders
09/14/24 14:03
Cardiac Monitoring- Treatment ONCE
09/14/24 14:04
Electrocardiogram (*1) Urgent
Reason for Study: Chest Pain
EKG- Treatment ONCE
09/14/24 14:05
CT Chest/abd/pelvis Angio W/wo Urgent
Comment:
Reason For Exam: L sided chest pain, L arm paresthesias
09/14/24 14:17
Complete Blood Count/With Diff Urgent
Comprehensive Metabolic Panel Urgent
Erythrocyte Sed Rate Urgent
Comment: ADD ON
Troponin I Urgent
09/14/24 14:39
Add On- LAB Urgent
Tests Added?: ESR
09/14/24 15:01
EKG- Treatment ONCE
09/14/24 17:12
Troponin I Urgent
09/14/24 17:15
Electrocardiogram (*1) Urgent
Reason for Study: Chest Pain
Abnormal Lab Results
09/14/24
14:17
Absolute Monos (auto) 0.8 H 10^3/uL
(0.1-0.6)
Carbon Dioxide 21 L mmol/L
(22-30)
ALT 54 H U/L
(0-50)
09/14/24 14:17
09/14/24 14:17
Vital Signs
Initial and Last Documented VS:
Initial Vital Signs
Temp Pulse Resp BP Pulse Ox
97.9 F 70 16 136/84 99
09/14/24 13:55 09/14/24 13:55 09/14/24 13:55 09/14/24 13:55 09/14/24 13:55
Last Documented Vital Signs
Temp Pulse Resp BP Pulse Ox
97.9 F 66 24 113/68 97
09/14/24 13:55 09/14/24 17:00 09/14/24 17:00 09/14/24 17:00 09/14/24 17:00
Garylt;Stefany Wynn PA-C - Last Filed: 09/14/24 18:49>
MDM/Problems Addressed
Differential Diagnosis Includes:
28yoM here with L chest tightness x 1 hour with associated L arm/face paresthesias. Tested positive for COVID 1 week ago. C/o SOB. Has had L arm symptoms at his last 2 ED visits. VSS. He appears anxious. Exam otherwise reassuring. Differential
diagnosis includes but is not limited to: ACS, arrhythmia, PE, aortic dissection, pneumonia, anxiety, nonspecific chest pain
Initial ED plan: Check cardiac labs, EKG, and CTA dissection study.
<Stefany Wynn PA-C - Last Filed: 09/14/24 18:49>
*EKG
Interpreted by ED Provider?: Yes
EKG Intrepretation Date: 09/14/24
Heart Rate: 65
Rate: normal
Rhythm: sinus
[place]: normal axis
Interval: normal interval
QRS Pattern: normal QRS
Ischemia: non-specific ST changes (Diffuse ST elevations noted, pericarditis vs. benign early repolarization)
*Critical Care Note
Total Time (30-74mins, 75-104mins- exclusive of procedures): Not Applicable
<Stefany Wynn PA-C - Last Filed: 09/14/24 18:49>
Update Note
Update Note:
Troponin WNL. CTA is negative for dissection and other acute findings. Delta troponin/EKG unchanged. Patient feeling improved on reassessment. No indication for hospitalization at this time. He was advised to f/u outpatient with a PCP. ED return
precautions discussed. He was discharged in stable condition.
ED Attending Note
<Stefany Wynn PA-C - Last Filed: 09/14/24 18:49>
-
Portions of this chart may have been created with voice recognition software.� Occasional wrong word or��sound alike� substitutions may have occurred due to the inherent limitations of voice recognition software.
<Topher Dillard MD - Last Filed: 09/14/24 18:00>
ED Attending Note
Patient seen and examined by attending physician: Yes
ED Attending Note:
Patient with history of hypertension and obesity, currently not taking any medications, presents to ED secondary to sudden onset of dizziness and nausea, while he was working this afternoon. Patient also felt as though he may pass out, which did
not happen. Patient felt hot afterwards, along with shortness of breath and chest tightness. Patient was noted to be pale at onset of symptoms, as witnessed by her spouse. Patient proceeded to open the door/window, with mild improvement. Denies
vomiting. Denies headache. No blurred vision. Denies loss of sensation. Denies weakness. However, patient does report associate left side of head/face, left arm, and left leg numbness, which now have improved. Of note, patient has had similar
symptoms on 2 separate occasions this year, requiring evaluation in ED. Since then, patient has been recommended to follow-up at medical clinic for continued evaluation, as she currently does not have insurance. However, patient has not followed
up. In addition, patient was prescribed blood pressure medication, which now he has run out of. Patient also states that he tested positive for COVID-19 1 week ago, when he experienced fever, chills, body ache, nasal congestion and sore throat.
Fever and chills sensation have resolved, but nasal congestion and body ache are continuing.
Physical Exam
General: no apparent distress, not acutely ill. afebrile. overweight.
Head: nc/at. eomi
Neck: supple. no meningeal signs.
Heart: s1/s2 regular rate and rhythm, no murmur. equal radial pulses.
Lungs: no acute respiratory distress. clear bilaterally
Abdomen: normal bowel sounds. not tender.
Neuro: alert and oriented. no focal neurological deficits
Skin: no rash
Psychiatric: well kept. interactive and cooperative
Extremities: no edema. no calf tenderness.
Patient with an unremarkable workup in ED, including blood work, EKG, and imaging study. Patient's presenting symptoms less likely ACS, but more likely secondary to vagal response, along with ongoing viral symptoms from recent COVID-19 infection.
However, as patient has multiple similar episodes over the past 5 months, patient would benefit from further evaluation as outpatient, including potential cardiology/neurology evaluation. As such, strongly recommended to the patient he does need to
call and make an appointment to be seen at local medical clinic, until his insurance is processed. Patient expresses understanding, at time of discharge, to the care of his .
Discharge Plan
Departure
Patient Disposition: Home (Routine Discharge)
Date of Disposition: 09/14/24
Time of Disposition: 17:47
Patient with high blood pressure during this ER visit?: No
Discharge Problem:
Chest pain
Instructions: Chest Pain PCP Follow Up
Prescriptions:
No Action
prednisone 50 mg tablet
50 mg PO DAILY Qty: 7 0RF
propranolol 20 mg tablet
20 mg PO BID Qty: 60 0RF
Referrals:
[facility] [Provider Group]
[facility] [Outside]
NONE,* [Family Provider] -
Activity Restrictions/Additional Instructions:
Please call tomorrow to schedule a follow-up with a primary care provider. Return to the ER with any new or worsening symptoms.
Interventions
Interventions:
*Risk Screen - Suicide Last Done: 09/14/24 14:38
*Neglect/Abuse Screening Last Done: 09/14/24 14:38
*Nursing Disposition Last Done: 09/14/24 17:50
ED- Cardiac Assessment Last Done: 09/14/24 14:00
Discharge Date and Time
Discharge Date/Time: 09/14/24 18:02
Print Language: LEBANESE
[2024-09-14 14:38] LABS: % Basophils 0.2 % (0-2); % Eosinophils 0.6 % (0-6); % Immature Granulocytes 0.2 % (0-0.5); % Lymphocytes 29.5 % (20.5-51.1); % Monocytes 8.9 % (1.7-9.3); % Neutrophils 60.6 % (42.2-75.2); Absolute Eosinophils 0.1 10^3/uL (0-0.7); Absolute Lymphocytes 2.5 10^3/uL (1.2-3.4); Absolute Monocytes 0.8 10^3/uL (0.1-0.6); Absolute Neutrophils 5.2 10^3/uL (1.4-6.5); Hemoglobin 15.3 g/dL (13.0-18.0); Mean Corp Hgb Conc. 33.3 g/dL (33.0-37.0); Mean Corpuscular Hgb 29.5 pg (27.0-31.0); Mean Corpuscular Volume 88.6 fL (80.0-94.0); Mean Platelet Volume 9.8 fL (7.4-10.4); Nucleated Red Blood Cells % 0 % (-); Platelet Count 289 10^3/uL (130-400); Red Blood Cell Count 5.19 10^6/uL (4.70-6.10); Red Cell Dist. Width 12.5 % (11.5-14.5); White Blood Cell Count 8.6 10^3/uL (4.8-10.8)
[2024-09-14 14:48] LABS: ALT (SGPT) 54 U/L (0-50); AST (SGOT) 38 U/L (17-59); Albumin 4.9 g/dl (3.5-5.0); Alkaline Phosphatase 78 U/L (38-126); Blood Urea Nitrogen 14 mg/dl (9-20); Calcium 9.7 mg/dl (8.4-10.2); Carbon Dioxide 21 mmol/L (22-30); Chloride 103 mmol/L (98-107); Estimated Creatinine Clearance > 125 ml/min; Glucose 99 mg/dl (70-99); Potassium 3.8 mmol/L (3.5-5.1); Sodium 138 mmol/L (135-145); Total Bilirubin 0.4 mg/dl (0.2-1.3); Total Protein 7.5 g/dl (6.3-8.2); eGFR > 60.00
[2024-09-14 14:55] LABS: Troponin I < 0.012 ng/ml
[2024-09-14 15:00] VITALS: BP 110/72
[2024-09-14 15:34] LABS: Erythrocyte Sed Rate 10 mm/hour (0-20)
[2024-09-14 15:52] VITALS: BP 121/51
[2024-09-14 16:00] VITALS: BP 122/71
[2024-09-14 17:00] VITALS: BP 113/68
[2024-09-14 17:43] LABS: Troponin I < 0.012 ng/ml
== END 2024-09-14 18:02 | disposition home or self-care (01) ==
LOC: EMR 13:49
PROVIDERS: Physician Assistant; EMERGENCY PHYSICIAN Emergency Medicine
DX: R07.9 Chest pain, unspecified (principal); I10 Essential (primary) hypertension; Z86.16 Personal history of COVID-19
CPT/HCPCS: 99284; 71275; 74174; 80053; 84484; 85025; 85652; 93005; Q9967

== ENCOUNTER 2025-05-14 11:18 | Emergency (ER) | payer OTHER, SELFPAY ==
[2025-05-14 11:24] VITALS: BP 136/83
--- NOTE | 2025-05-14 12:11 | ED.GENMED ---
History of Present Illness
General
Chief Complaint: Insect Sting
Source: patient
Exam Limitations: none
Time Seen by Provider: 05/14/25 12:07
History of Present Illness
History of Present Illness:
See MDM
Past History
Past History
ED Past Medical History: Other (Recent neurologic episode. Possible complex migraine)
ED Past Surgical History: Orthopedic (Left arm surgery)
Patient has exhibited threatening behavior?: No
Phy Exam
Physical Exam
Physical Exam:
See MDM
Course
Orders/Labs/Results
Orders:
Orders
05/14/25 12:10
Prednisone [Deltasone] 50 mg PO NOW STA
Vital Signs
Initial and Last Documented VS:
Initial Vital Signs
Temp Pulse Resp BP Pulse Ox
98.6 F 64 16 136/83 98
05/14/25 11:24 05/14/25 11:24 05/14/25 11:24 05/14/25 11:24 05/14/25 11:24
Last Documented Vital Signs
Temp Pulse Resp BP Pulse Ox
98.6 F 64 16 136/83 98
05/14/25 11:24 05/14/25 11:24 05/14/25 11:24 05/14/25 11:24 05/14/25 11:24
MDM/Problems Addressed
Differential Diagnosis Includes:
Note:
CHIEF COMPLAINT(S)
Swelling of the hand due to bee sting.
HISTORY OF PRESENT ILLNESS
The patient is a 29-year-old male who presented with swelling of the hand after being stung by a bee last night before bed. He states that this area is swollen but not red or infected. The swelling has caused difficulty in squeezing the hand due to
tightness. The patient has a history of allergic reactions, though not serious ones. The swelling is described as significant due to the location on the palm, which is a site that allows for a lot of swelling.
PHYSICAL EXAM
General: Alert, no acute distress.
Skin: Warm, dry.
Head: Normocephalic, atraumatic
Neck: Appears supple, trachea midline.
Eyes, Ears, Nose, Mouth, and Throat: Oral mucosa moist.
Cardiovascular: No signs of cyanosis
Respiratory: Respirations are non-labored.
Abdomen: Non-distended
Musculoskeletal: Mild edema noted to dorsum of right hand without skin changes. Decreased range of motion secondary to edema. Distal extremity otherwise neurovascular intact.
Neurological: No focal neurological deficit observed.
Psychiatric: Cooperative, appropriate mood and affect.
PLAN
The patient was prescribed a course of steroids to reduce the swelling. Additionally, the application of ice was recommended to help with symptom relief. The patient was given the first dose of steroids in the office to avoid a delay with the
pharmacy.
DIFFERENTIAL DIAGNOSIS
The Differential Diagnosis includes, in no particular order and is not limited to:
1. Allergic reaction to insect sting
2. Cellulitis
3. Dermatitis
4. Lymphangitis
5. Contact dermatitis
6. Arthropod bite reaction
7. Localized infection
8. Soft tissue injury
9. Lymphedema
10. Tendonitis
Disposition:
SUMMARY OF ENCOUNTER
The patient, a 29-year-old male, presented with swelling of the hand due to an allergic reaction after being stung by a bee on the dorsum of his right hand the previous night. There was significant edema present, resulting in decreased range of
motion, but no evidence of cellulitis or infection. The patient appeared well, with no signs of systemic toxicity. Management included prescribing a short course of steroids to address the localized allergic reaction and advising the application of
ice for symptomatic relief. Return precautions were discussed to ensure the patient seeks further medical care if necessary.
PLAN
The patient was advised to take a short course of steroids to reduce swelling and to apply ice to the affected area to alleviate symptoms. The patient was informed to return for medical evaluation if symptoms worsen or if new symptoms develop.
PATIENT EDUCATION AND COUNSELING
The patient was educated on the importance of monitoring for any signs of worsening reactions or infections such as increased swelling, redness, pus, or fever. He was also counseled on the application of ice and the use of prescribed steroids to
mange his symptoms.
MEDICATION RECONCILIATION
1. Prescribed a short course of steroids (specific drug not specified).
MEDICAL DECISION MAKING
- Number and Complexity of Problems Addressed: Chronic condition affecting care includes the allergic reaction to the bee sting. Differential diagnosis considerations included: allergic reaction to insect sting, cellulitis, dermatitis, lymphangitis,
contact dermatitis, arthropod bite reaction, localized infection, soft tissue injury, lymphedema, tendonitis.
- Data:
- No lab tests or imaging studies were reviewed or ordered given the clear clinical diagnosis.
- No consultations with other healthcare providers were necessary in this case.
- Risk: Consideration was given to the possibility of escalating care if systemic symptoms developed. Current management focuses on outpatient care with a low risk for complications given the localized nature of the reaction. Prescription medication
was prescribed for swelling management.
DIAGNOSIS
- T63.441A - Toxic effect of venom of bees, accidental (unintentional), initial encounter.
*Pulse Oximetry
SaO2: 98
Oxygen Mode of Delivery: Room air
Patient hypoxic: no
*Critical Care Note
Total Time (30-74mins, 75-104mins- exclusive of procedures): Not Applicable
ED Attending Note
-
Portions of this chart may have been created with voice recognition software.� Occasional wrong word or��sound alike� substitutions may have occurred due to the inherent limitations of voice recognition software.
Discharge Plan
Departure
Patient Disposition: Home (Routine Discharge)
Date of Disposition: 05/14/25
Time of Disposition: 12:12
Patient with high blood pressure during this ER visit?: No
Discharge Problem:
Bee sting allergy
Instructions: Insect Bites and Stings (DC)
Prescriptions:
New
prednisone 20 mg tablet
40 mg PO DAILY Qty: 10 0RF
No Action
prednisone 50 mg tablet
50 mg PO DAILY Qty: 7 0RF
propranolol 20 mg tablet
20 mg PO BID Qty: 60 0RF
Referrals:
David Winslow, [Family Provider]
Activity Restrictions/Additional Instructions:
Watch for signs of infection: fever over 100.5', increasing pain, red streaks around wound, swelling, or increasing drainage of pus. If any of these happen, return to ED promptly.
Interventions
Interventions:
*Risk Screen - Suicide Last Done: 05/14/25 11:24
*Neglect/Abuse Screening Last Done: 05/14/25 11:24
Discharge Date and Time
Print Language: CYMRAES
[2025-05-14] MEDS: DELTASONE 50 MG PO (12:25)
== END 2025-05-14 12:29 | disposition home or self-care (01) ==
LOC: EMR 11:18
PROVIDERS: EMERGENCY PHYSICIAN Student in an Organized Health Care Education/Training Program; FAMILY PHYSICIAN Family Medicine
DX: T63.441A Toxic effect of venom of bees, accidental (unintentional), initial encounter (principal)
CPT/HCPCS: 99283